=== PATIENT | female | born 1990 | race Caucasian/White ===

== ENCOUNTER 2018-07-03 19:59 | Inpatient (IN) | payer OTHER ==
[~2018-07-03] VITALS: Ht 152.4 cm; Wt 85.6 kg
[2018-07-03 20:26] VITALS: Ht 152.4 cm; Wt 85.6 kg
[2018-07-03] MEDS ORDERED: MAGNESIUM SULFATE 4 GM/100 ML 100 ML IV PRN (21:00)
[2018-07-03] MEDS ORDERED: LACTATED RINGER'S 1,000 ML IV PRN (21:00)
[2018-07-03] MEDS ORDERED: BETAMET NA PHOS/AC(6 MG/ML) 2 ML INJ SYG IM PRN (21:00)
[2018-07-03] MEDS ORDERED: TERBUTALINE 1 MG/ML INJ SC PRN (21:00)
[2018-07-03] MEDS ORDERED: MAGNESIUM SULFATE 20 GM/500 ML 500 ML IV PRN (21:00)
[2018-07-03] MEDS ORDERED: ACETAMINOPHEN 500 MG TAB PO PRN (21:00)
--- NOTE | 2018-07-03 21:51 | TRIAGE ---
OB Triage Datetime Report Generated by CPN: 07/03/2018 21:51 Datetime: 07/03/2018 21:27 Labor Evaluation Monitor Mode: Palpation Resting Tone [place]: Relaxed Datetime: 07/03/2018 20:03 EGA: 31.1 Datetime: 07/03/2018 19:45 Stage of : OB Triage Assessment Type: Triage Time of Arrival: 07/03/2018 19:45 Arrived By: Wheelchair Arrived From: Home Chief Complaint: abd/dfm since 0200 Movement: Decreased Contractions: Unsure Rupture of Membranes: Denies Vaginal Bleeding: None Vaginal Discharge: Denies Recent Sexual Intercouse: Denies Abdominal Trauma: Not Applicable Patient Complaints: Back Pain; Headache Time Provider Notified: 07/03/2018 21:00 Provider Notified: salceda Maternal Assessment Level of Consciousness: Fully Conscious Headache: Denies Blurred Vision: No Respiratory Effort: Unlabored; Regular Rhythm; Equal Expansion Breath Sounds, Left: Clear and Equal Breath Sounds, Right: Clear and Equal Nausea/Vomiting: Denies RUQ Epigastric Pain: Denies Facial Edema: None Fall Risk Assessment History of Falling: (0) No Secondary Diagnosis: (0) No Ambulatory Aid: (0) Bedrest/Nurse Assist IV Therapy: (0) No Gait: (0) Normal/Bedrest/Immobile Mental Status: (0) Oriented to Own Ability Fall Score: 0 Fall Risk Score Definition: No Risk: No action required
[2018-07-04] MEDS ORDERED: PRENATAL VITAMIN PO SCH (09:00)
--- NOTE | 2018-07-05 17:40 | PN ---
Triage Information Date/Time Jul 03, 2018 at 21:00 Reason for visit: Uterine contractions Weeks of Gestation 28 yo at 31 wks and 2 days of gestation with [facility] 09/03/2018 presents with complaint of uterine contractions She reports positive movement, denies vaginal bleeding or leaking fluid Past OB hx SABx 4 , C/S X2 Reports hx of PTL and hx of vaginal BV infection /Para Diabetes: none Hypertention: none Objective Vital Signs Date Temp Pulse Resp B/P (MAP) Pulse Ox O2 O2 Flow FiO2 Time Delivery Rate 07/03/18 98.0 22:30 Heart Rate: 140's Heart Rate Comments heart rate tracing CAT 1 Contractions: None Results/Medications Result Diagram: 07/03/18222307/03/182223 Results 24 hrs Urine Results - 72 Hrs Test 07/03/18 20:09 Urine Color YELLOW (YELLOW) Urine Clarity CLEAR (CLEAR) Urine pH 6.0 (5.0-9.0) Urine Specific [place] 1.015 (1.003-1.030) Urine Ketones NEGATIVE mg/dL (NEGATIVE) Urine Nitrite NEGATIVE mg/dL (NEGATIVE) Urine Bilirubin NEGATIVE mg/dL (NEGATIVE) Urine Urobilinogen 1+ mg/dL (NEGATIVE) H Urine Leukocyte Esterase NEGATIVE Master/ul Urine Microscopic RBC 2 /HPF (0-5) Urine Microscopic WBC 0 /HPF (0-5) Urine Squamous Epithelial Cells FEW /HPF (FEW) Urine Mucus FEW /HPF (NONE SEEN) A Urine Hemoglobin 1+ mg/dL (NEGATIVE) H Urine Glucose NEGATIVE mg/dL (NEGATIVE) Urine Total Protein NEGATIVE mg/dl (NEGATIVE) Imaging Results PROCEDURE: Obstetric ultrasound CLINICAL INDICATION: Pain , labor TECHNIQUE: Multiple transverse and longitudinal grayscale images of the pelvis were obtained transabdominally and transvaginally.. COMPARISON: US PELVIS 07/03/2018 FINDINGS: The cervix is closed with a length of 3.1 cm. There is a single live intrauterine gestation. Cardiac activity is present with 140 beats per minute. There is a vertex presentation. The placenta is posterior. There is no evidence for an abruption or placenta previa. RPTAT: AA IMPRESSION: Cervix length measures 3.1 cm. Posterior placenta with no abruption or previa. .Solomon Hernandez MD, MD Date Time Electronically viewed and signed by .Solomon Hernandez MD, MD on 07/04/2018 12:54 .S/ CC: BLAIRE PHILIPPE MD [phone] PROCEDURE: US OB biophysical profile. CLINICAL INDICATION: labor TECHNIQUE: Multiple sonographic images of the pelvis were obtained. The images were reviewed on a PACS workstation. COMPARISON: No prior studies are available for comparison. FINDINGS: Gestation: Single live intrauterine gestation. Cardiac activity: 144 beats per minute. Presentation: Vertex. Placenta: Location: Right lateral body grade II Appearance: No previa or abruption. Amniotic Fluid: NEHA = 17.1 cm Biophysical profile: - movement = 2/2 - tone = 2/2 - breathing = 2/2 - NEHA = 2/2 Total = 8/8 IMPRESSION: Normal biophysical profile. RPTAT: AA . Physician Lidia Date Time Electronically viewed and signed by Physician Lidia on 07/03/2018 21:51 RB/ CC: LENA HUTCHINS MD [id number] PROCEDURE: US OB. CLINICAL INDICATION: labor TECHNIQUE: Multiple sonographic images of the pelvis and gravid uterus were obtained. The images were reviewed on a PACS workstation. COMPARISON: No prior studies are available for comparison. FINDINGS: Gestation: Single live intrauterine gestation. Cardiac activity: 144 beats per minute. Presentation: Vertex. Placenta: Location: Right lateral body grade 2 Appearance: No previa or abruption. Measurements: BPD = 8.1 cm, 32 weeks and 4 days HC = 29.3 cm, 32 weeks and 2 days AC = 28 cm, 31 weeks and 6 days FL = 6.3 cm, 32 weeks and 4 days Gestational Age: AUA estimated gestational age: 32 weeks 2 days LMP estimated gestational age: 31 weeks 1 days AUA estimated date of delivery: 08/26/2018 The EFW = 1918 g, 73%ile based on LMP age. RPTAT: AA IMPRESSION: Single live intrauterine gestation of 32 weeks 2 days by ultrasound criteria. Mark Gee Physician Date Time Electronically viewed and signed by Mark Gee Physician on 07/03/2018 21:54 RB/ CC: LENA HUTCHINS MD [id number] Disposition: Discharge Assessment/Plan po hydration was given and instructed to increase po hydration Urine culture was sent Prescription for MetroGel was given kick count instructions were given Patient was instructed to F/U with own OBGYN in 1-2 days BLAIRE PHILIPPE MD Jul 05, 2018 17:35
--- NOTE | 2018-07-08 05:31 | PREOPHP ---
DATE OF ADMISSION: 07/03/2018 HISTORY OF PRESENT ILLNESS: This is a 28-year-old lady, 7, para 2 with 4 spontaneous abortio ns. Her EDC is 09/03/2018, at 31 weeks' , admitted to labor and delivery area for observatio n. She was having lower abdominal pains and low back pains, so she was admitted for observation. Loree beasley had care in my [place] office and the care was uneventful. PAST PERSONAL HISTORY: No history of diabetes, TB, asthma. ALLERGIES: NONE. SOCIAL HISTORY: The patient does not smoke. She does not drink. MEDICATIONS: She does not take any drugs except her: 1. Iron. 2. Vitamins. GYNECOLOGIC HISTORY: She had menarche at the age of 8, every 28 days' interval, 3 to 4 days' durati on and moderate in amount. FAMILY HISTORY: Mother has hypertension. OBSTETRIC HISTORY: She is 7, para 2. Her first delivery was in 2009, second in 2013, both b y . She had 4 spontaneous abortions. REVIEW OF SYSTEMS: CARDIOVASCULAR: No chest pains. RESPIRATORY: No cough. GASTROINTESTINAL: No diarrhea, no vomiting. GENITOURINARY: No dysuria. PHYSICAL EXAMINATION: GENERAL: Reveals a conscious, coherent lady and in no acute distress. VITAL SIGNS: Her blood pressure is 120/80, pulse rate 80 per minute, respirations 16 per minute. BREASTS, HEART AND LUNGS: Within normal limits. ABDOMEN: Soft. No organomegaly. Fundic height is 31 cm. heart tones are 140 per minute. PELVIC: Revealed the cervix to be closed. EXTREMITIES: No pedal edema. ADMITTING DIAGNOSIS: A 31 weeks' intrauterine , rule out labor. The patient was planned to be observed in the hospital and to be given IV hydration. She was ordered some betamethasone as well. The plans were explained to the patient and she understood everything t otally. The risks, benefits and alternatives were discussed with her as well. Dictated By: LENA BURR/NTS Conf#: [id number] DID#: [id number]
== END 2018-07-04 14:20 | disposition home or self-care (01) | DRG 833 ==
LOC: OBT 19:59 → L-D 20:01 → OBT 21:00 → L-D 21:00
PROVIDERS: ADMIT Obstetrics & Gynecology; ATTEND Obstetrics & Gynecology
DX: O60.03 Preterm labor without delivery, third trimester (principal); Z3A.31 31 weeks gestation of pregnancy
CPT/HCPCS: 76815; 76817; 76818; 80053; 81001; 85025; 87086; G0463

== ENCOUNTER 2018-07-14 19:12 | Outpatient (CLI) | payer OTHER ==
[~2018-07-14] VITALS: Ht 152.4 cm; Wt 85.7 kg
[2018-07-14 19:38] VITALS: Ht 152.4 cm; Wt 85.7 kg
[2018-07-14] MEDS ORDERED: PREN-93 PO (19:38)
[2018-07-14 19:39] VITALS: BP 98/52; PULSE 72; RESP 18
[2018-07-14] MEDS ORDERED: TERBUTALINE 1 MG/ML INJ SC PRN (20:00)
[2018-07-14] MEDS ORDERED: BETAMET NA PHOS/AC(6 MG/ML) 2 ML INJ SYG IM ONE (20:00)
--- NOTE | 2018-07-14 21:23 | TRIAGE ---
OB Triage Datetime Report Generated by CPN: 07/14/2018 21:22 Datetime: 07/14/2018 19:36 Assessment Type: Triage Maternal Assessment Level of Consciousness: Fully Conscious DTR's/Clonus: DTRs 2+; No Clonus Headache: Denies Blurred Vision: No Respiratory Effort: Unlabored; Regular Rhythm; Equal Expansion Breath Sounds, Left: Clear and Equal Breath Sounds, Right: Clear and Equal Nausea/Vomiting: Denies RUQ Epigastric Pain: Denies Lower Extremities Edema: None Degree: None Upper Extremities Edema: None Degree: None Facial Edema: None Fall Risk Assessment History of Falling: (0) No Secondary Diagnosis: (0) No Ambulatory Aid: (0) Bedrest/Nurse Assist IV Therapy: (0) No Gait: (0) Normal/Bedrest/Immobile Mental Status: (0) Oriented to Own Ability Fall Score: 0 Fall Risk Score Definition: No Risk: No action required Datetime: 07/14/2018 19:35 Time of Arrival: 07/14/2018 19:00 EGA: 32.5 Arrived By: Ambulatory Arrived From: Home Chief Complaint: PT. HERE C/O SHOOTING PAIN DOWN HER RIGHT LEG AND CRAMPING Movement: Present Contractions: Denies/Absent Rupture of Membranes: Denies Vaginal Discharge: Denies Recent Sexual Intercouse: Yes Abdominal Trauma: Not Applicable Patient Complaints: Cramping Time Provider Notified: 07/14/2018 19:20 Provider Notified: SALCEDA Initial Plan: CBC/UA/BPP/EFW/CVL/BLE VENOUS DOPPLER/ Datetime: 07/14/2018 19:28 Monitor Mode: External Monitor Mode: External US Datetime: 07/04/2018 14:03 Stage of : Antepartum Datetime: 07/04/2018 14:00 Labor Evaluation Frequency: 0 Monitor Mode: External Pattern: Normal: <= 5 Contractions in 10 Minutes Resting Tone [place]: Relaxed Heart Rate FHR Baseline Rate: 125 Monitor Mode: External US Variability: Moderate 6-25 bpm Accelerations: 10X10 Decelerations: None Category: Category I Pain Assessment Pain Scale: 0 Pain Presence: None/Denies Pain Type: N/A Pain Goal: 3 Pain Relief Measures: Comfort Measures Datetime: 07/04/2018 12:50 Labor Evaluation Frequency: 0 Monitor Mode: External Pattern: Normal: <= 5 Contractions in 10 Minutes Resting Tone [place]: Relaxed Heart Rate FHR Baseline Rate: 135 Monitor Mode: External US Variability: Moderate 6-25 bpm Accelerations: 10X10 Decelerations: None Category: Category I Pain Assessment Pain Scale: 0 Pain Presence: None/Denies Pain Type: N/A Pain Goal: 3 Pain Relief Measures: Comfort Measures Datetime: 07/04/2018 11:57 Stage of : Antepartum Datetime: 07/04/2018 11:38 Stage of : Antepartum Datetime: 07/04/2018 11:31 Comments: MULTIPLE MOVEMENTS Datetime: 07/04/2018 10:30 Labor Evaluation Frequency: 0 Monitor Mode: External Pattern: Normal: <= 5 Contractions in 10 Minutes Resting Tone [place]: Relaxed Heart Rate FHR Baseline Rate: 135 Monitor Mode: External US Variability: Moderate 6-25 bpm Accelerations: 10X10 Decelerations: None Category: Category I Pain Assessment Pain Scale: 3 Pain Presence: Intermittent Pain Type: Cramping Pain Location: Abdomen Pain Goal: 3 Pain Relief Measures: Comfort Measures Datetime: 07/04/2018 09:23 Labor Evaluation Frequency: X1 Monitor Mode: External Duration (sec)2399: 50 Pattern: Normal: <= 5 Contractions in 10 Minutes Resting Tone [place]: Relaxed Heart Rate FHR Baseline Rate: 135 Monitor Mode: External US Variability: Moderate 6-25 bpm Accelerations: 10X10 Decelerations: None Category: Category I Pain Assessment Pain Scale: 0 Pain Presence: None/Denies Pain Type: N/A Pain Goal: 3 Pain Relief Measures: Comfort Measures Datetime: 07/04/2018 08:34 Labor Evaluation Frequency: 0 Monitor Mode: External Pattern: Normal: <= 5 Contractions in 10 Minutes Resting Tone [place]: Relaxed Heart Rate FHR Baseline Rate: 135 Monitor Mode: External US Variability: Moderate 6-25 bpm Accelerations: 10X10 Decelerations: None Category: Category I Pain Assessment Pain Scale: 0 Pain Presence: None/Denies Pain Type: N/A Pain Goal: 3 Pain Relief Measures: Comfort Measures Datetime: 07/04/2018 08:30 Assessment Type: Ongoing Assessment Maternal Assessment Level of Consciousness: Fully Conscious DTR's/Clonus: DTRs 2+; No Clonus Headache: Denies Blurred Vision: No Respiratory Effort: Unlabored; Regular Rhythm; Equal Expansion Breath Sounds, Left: Clear and Equal Breath Sounds, Right: Clear and Equal Nausea/Vomiting: Denies RUQ Epigastric Pain: Denies Facial Edema: None Fall Risk Assessment History of Falling: (0) No Secondary Diagnosis: (0) No Ambulatory Aid: (0) Bedrest/Nurse Assist IV Therapy: (0) No Gait: (0) Normal/Bedrest/Immobile Mental Status: (0) Oriented to Own Ability Fall Score: 0 Fall Risk Score Definition: No Risk: No action required Datetime: 07/04/2018 07:32 Labor Evaluation Frequency: X1 Monitor Mode: External Duration (sec)2399: 40 Pattern: Normal: <= 5 Contractions in 10 Minutes Resting Tone [place]: Relaxed Heart Rate FHR Baseline Rate: 135 Monitor Mode: External US Variability: Moderate 6-25 bpm Accelerations: 10X10 Decelerations: None Category: Category I Pain Assessment Pain Scale: 0 Pain Presence: None/Denies Pain Type: N/A Pain Goal: 3 Pain Relief Measures: Comfort Measures Datetime: 07/04/2018 06:42 Stage of : Antepartum Maternal Assessment Level of Consciousness: Fully Conscious Labor Evaluation Frequency: None Monitor Mode: External Pattern: Normal: <= 5 Contractions in 10 Minutes Heart Rate FHR Baseline Rate: 135 FHR Baseline Changes: No Baseline Change Variability: Moderate 6-25 bpm Accelerations: 15X15 Category: Category I Pain Assessment Pain Scale: 0 Pain Presence: None/Denies Datetime: 07/04/2018 05:45 Stage of : Antepartum Maternal Assessment Level of Consciousness: Fully Conscious Labor Evaluation Frequency: None Monitor Mode: External Pattern: Normal: <= 5 Contractions in 10 Minutes Heart Rate FHR Baseline Rate: 125 FHR Baseline Changes: No Baseline Change Variability: Moderate 6-25 bpm Accelerations: 15X15 Category: Category I Pain Assessment Pain Scale: 0 Pain Presence: None/Denies Datetime: 07/04/2018 04:44 Stage of : Antepartum Maternal Assessment Level of Consciousness: Fully Conscious Temperature Route: Oral Labor Evaluation Frequency: None Monitor Mode: External Pattern: Normal: <= 5 Contractions in 10 Minutes Heart Rate FHR Baseline Rate: 130 FHR Baseline Changes: No Baseline Change Variability: Moderate 6-25 bpm Accelerations: 15X15 Category: Category I Pain Assessment Pain Scale: 0 Pain Presence: None/Denies Pain Assessment Comments: Pt states she has no pain, wants to go back to sleep, Pt was cold, blamk ets given, up to BR. Datetime: 07/04/2018 03:15 Stage of : Antepartum Maternal Assessment Level of Consciousness: Fully Conscious Labor Evaluation Frequency: None Monitor Mode: External Pattern: Normal: <= 5 Contractions in 10 Minutes Heart Rate FHR Baseline Rate: 130 FHR Baseline Changes: No Baseline Change Variability: Moderate 6-25 bpm Accelerations: 15X15 Category: Category I Pain Assessment Pain Scale: 0 Pain Presence: None/Denies Datetime: 07/04/2018 02:15 Stage of : Antepartum Maternal Assessment Level of Consciousness: Fully Conscious Labor Evaluation Frequency: None Monitor Mode: External Pattern: Normal: <= 5 Contractions in 10 Minutes Heart Rate FHR Baseline Rate: 130 FHR Baseline Changes: No Baseline Change Variability: Moderate 6-25 bpm Accelerations: 15X15 Category: Category I Pain Assessment Pain Scale: 0 Pain Presence: None/Denies Pain Assessment Comments: Sleeping did not awaken when rounding Datetime: 07/04/2018 01:11 Stage of : Antepartum Maternal Assessment Level of Consciousness: Fully Conscious Labor Evaluation Frequency: x2 Monitor Mode: External Pattern: Normal: <= 5 Contractions in 10 Minutes Heart Rate FHR Baseline Rate: 130 FHR Baseline Changes: No Baseline Change Variability: Moderate 6-25 bpm Accelerations: 15X15 Category: Category I Pain Assessment Pain Scale: 2 Pain Presence: Constant Pain Type: Cramping; Dull; Sharp; Stabbing; Pressure Datetime: 07/04/2018 00:13 Stage of : Antepartum Assessment Type: Admission Assessment Vaginal Bleeding: None Maternal Assessment Level of Consciousness: Fully Conscious DTR's/Clonus: DTRs 2+; No Clonus Headache: Denies Blurred Vision: No Respiratory Effort: Unlabored; Regular Rhythm; Equal Expansion Breath Sounds, Left: Clear and Equal Breath Sounds, Right: Clear and Equal Nausea/Vomiting: Denies RUQ Epigastric Pain: Denies Facial Edema: None Fall Risk Assessment History of Falling: (0) No Secondary Diagnosis: (0) No Ambulatory Aid: (0) Bedrest/Nurse Assist IV Therapy: (0) No Gait: (0) Normal/Bedrest/Immobile Mental Status: (0) Oriented to Own Ability Fall Score: 0 Fall Risk Score Definition: No Risk: No action required Labor Evaluation Frequency: x2 Monitor Mode: External Pattern: Normal: <= 5 Contractions in 10 Minutes Heart Rate FHR Baseline Rate: 130 FHR Baseline Changes: No Baseline Change Variability: Moderate 6-25 bpm Accelerations: 15X15 Category: Category I Pain Assessment Pain Scale: 2 Pain Presence: Constant Pain Type: Cramping; Dull; Sharp; Stabbing; Pressure (Annotations: Pt voices all types of pain on abdomen, and pelvic pain. No UC's noted with EFM or by palpation. Fetus is very active and pt. complains with every movement of pain.) Datetime: 07/03/2018 23:30 Stage of : Antepartum Maternal Assessment Level of Consciousness: Fully Conscious Labor Evaluation Frequency: x2 Monitor Mode: External Duration (sec)2399: 20-40 Quality: Mild Pattern: Normal: <= 5 Contractions in 10 Minutes Resting Tone [place]: Relaxed Heart Rate FHR Baseline Rate: 130 Monitor Mode: External US FHR Baseline Changes: No Baseline Change Variability: Moderate 6-25 bpm Accelerations: 15X15 Decelerations: None Category: Category I Pain Assessment Pain Scale: 2 Pain Presence: Intermittent Pain Type: Cramping; Dull; Stabbing; Pressure Pain Location: Abdomen; Back; Perineum; Right Groin; Left Groin; Right Hip; Left Hip Pain Relief Measures: Comfort Measures Datetime: 07/03/2018 22:30 Stage of : Antepartum Assessment Type: Admission Assessment Maternal Assessment Level of Consciousness: Fully Conscious DTR's/Clonus: DTRs 2+ Headache: Denies Blurred Vision: No Respiratory Effort: Unlabored; Regular Rhythm; Equal Expansion Breath Sounds, Left: Clear and Equal Breath Sounds, Right: Clear and Equal Nausea/Vomiting: Denies RUQ Epigastric Pain: Denies Lower Extremities Edema: None Upper Extremities Edema: None Facial Edema: None Fall Risk Assessment History of Falling: (0) No Secondary Diagnosis: (0) No Ambulatory Aid: (0) Bedrest/Nurse Assist IV Therapy: (0) No Gait: (0) Normal/Bedrest/Immobile Mental Status: (0) Oriented to Own Ability Fall Score: 0 Fall Risk Score Definition: No Risk: No action required Labor Evaluation Frequency: x2 Monitor Mode: External Duration (sec)2399: 20-40 Quality: Mild Pattern: Normal: <= 5 Contractions in 10 Minutes Resting Tone [place]: Relaxed Heart Rate FHR Baseline Rate: 130 Monitor Mode: External US FHR Baseline Changes: No Baseline Change Variability: Moderate 6-25 bpm Accelerations: 15X15 Decelerations: None Category: Category I Pain Assessment Pain Scale: 2 Pain Presence: Intermittent Pain Type: Cramping; Dull; Stabbing; Pressure Pain Location: Abdomen; Back; Perineum; Right Groin; Left Groin; Right Hip; Left Hip Pain Relief Measures: Comfort Measures Datetime: 07/03/2018 22:00 Labor Evaluation Frequency: 0 Monitor Mode: External Duration (sec)2399: 0 Pattern: Normal: <= 5 Contractions in 10 Minutes Heart Rate FHR Baseline Rate: 135 Monitor Mode: External US FHR Baseline Changes: No Baseline Change Variability: Moderate 6-25 bpm Accelerations: 15X15 Datetime: 07/03/2018 21:39 Comments: patient reports positive movement Datetime: 07/03/2018 21:00 Labor Evaluation Frequency: 0 Monitor Mode: External Duration (sec)2399: 0 Pattern: Normal: <= 5 Contractions in 10 Minutes Heart Rate FHR Baseline Rate: 135 Monitor Mode: External US FHR Baseline Changes: No Baseline Change Variability: Moderate 6-25 bpm Accelerations: 15X15 Datetime: 07/03/2018 20:45 Stage of : OB Triage Datetime: 07/03/2018 20:03 EGA: 31.1 Arrived By: Wheelchair Datetime: 07/03/2018 19:45 Fall Score: 0 Fall Risk Score Definition: No Risk: No action required
--- NOTE | 2018-08-14 04:14 | HP ---
DATE OF ADMISSION: 07/14/2018 HISTORY OF PRESENT ILLNESS: This is a 28-year-old lady, 7, para 2 with 4 spontaneous abortio n. Her EDC is 09/03/2018 at 32 and 4/7 weeks , admitted for observation because of lower abd ominal pains and leg pains. This started about few hours prior to admission. She had care in my [place] office and the care was uneventful. PAST PERSONAL HISTORY: No history of TB, asthma. ALLERGIES: NO ALLERGIES. SOCIAL HISTORY: The patient does not smoke. She does not drink. MEDICATIONS: She does not take any drugs except her: 1. Iron. 2. Vitamins. GYNECOLOGIC HISTORY: She had menarche at the age of 8, every 28 days interval, 3 to 4 days duration and moderate in amount. FAMILY HISTORY: Noncontributory except her mother has hypertension. OBSTETRIC HISTORY: She is 5, para 2. She had her first delivery was in 2009, second in 2013 , both by . She had 4 spontaneous , 2 in 2016, 1 in 2018 and last one, the patient does not remember. REVIEW OF SYSTEMS: CARDIOVASCULAR: No chest pains. RESPIRATORY: No cough. GASTROINTESTINAL: No diarrhea, no vomiting. GENITOURINARY: No dysuria. PHYSICAL EXAMINATION: GENERAL: Reveals a conscious, coherent lady and in no acute distress. VITAL SIGNS: Her blood pressure 120/80, pulse rate 80 per minute, respirations 16 per minute. BREASTS, HEART AND LUNGS: Within normal limits. ABDOMEN: Soft. Fundic height is 32 cm. heart tones are normal. PELVIC: Revealed the cervix to be closed. EXTREMITIES: No calf tenderness. ASSESSMENT: This 32 and 4/7 weeks intrauterine , rule out labor and rule out deep v enous thrombosis. The patient was observed in the hospital. OB ultrasound showed NEHA was normal. was done and t hey were negative. The patient felt better during the observation and she was discharged home in o and stable condition on general diet and activity was restricted. She was counseled. She was inst ructed. She was told to come back to the hospital if there is any problem or concern. DIAGNOSIS: A 32 and 4/7 weeks intrauterine , false labor. Dictated By: LENA BURR/ANDREA Conf#: [id number] [facility]#: [id number]
== END 2018-07-14 21:35 | disposition home or self-care (01) ==
LOC: OBT 19:12 → L-D 19:13 → OBT 21:35
PROVIDERS: ATTEND Obstetrics & Gynecology
DX: O47.03 False labor before 37 completed weeks of gestation, third trimester (principal); Z3A.32 32 weeks gestation of pregnancy
CPT/HCPCS: 76815; 76817; 76818; 81001; 85025; 93970; J0702; Z7500; G0463

== ENCOUNTER 2018-08-02 18:25 | Outpatient (CLI) | payer OTHER ==
[~2018-08-02] VITALS: Ht 152.4 cm; Wt 86.9 kg
[~2018-08-02 18:25] MED LIST: PREN-93 PO
[2018-08-02 19:03] VITALS: Ht 152.4 cm; Wt 86.9 kg
[2018-08-02] MEDS ORDERED: LACTATED RINGER'S 500 ML IV ONE (19:30)
[2018-08-02] MEDS ORDERED: ACETAMINOPHEN 500 MG TAB PO STA (21:26)
--- NOTE | 2018-08-02 22:18 | PN ---
Triage Information Date/Time Reason for visit: Uterine contractions Weeks of Gestation 35+ weeks /Para Diabetes: none Hypertention: none Objective Heart Rate: 120's Heart Rate Comments Reactive Contractions: >10 Minutes Apart Exam Cervix closed Disposition: Discharge Assessment/Plan After rest, patient states her contractions spaced out. No cervical change Follow up with CAROLINE Sprague MD Aug 02, 2018 22:18
--- NOTE | 2018-08-03 03:47 | TRIAGE ---
OB Triage Datetime Report Generated by CPN: 08/03/2018 03:47 Datetime: 08/02/2018 22:20 Stage of : OB Triage Assessment Type: Triage Datetime: 08/02/2018 22:04 Stage of : OB Triage Labor Evaluation Frequency: Occasional Monitor Mode: External Duration (sec)2399: 40-140 Quality: Mild Pattern: Normal: <= 5 Contractions in 10 Minutes Resting Tone [place]: Relaxed Heart Rate FHR Baseline Rate: 130 Monitor Mode: External US FHR Baseline Changes: No Baseline Change Variability: Moderate 6-25 bpm Accelerations: 15X15 Decelerations: None Category: Category I Datetime: 08/02/2018 21:59 Stage of : OB Triage Datetime: 08/02/2018 21:47 Vaginal Exam Dilatation (cms): 0.0 Station: -2 Exam By: Dr.Delshad Datetime: 08/02/2018 21:45 Stage of : OB Triage Datetime: 08/02/2018 21:35 Stage of : OB Triage Pain Assessment Pain Scale: 8 Pain Presence: Constant Pain Type: Ache Pain Location: Head Pain Relief Measures: Pain Medication Given Datetime: 08/02/2018 21:00 Stage of : OB Triage Labor Evaluation Frequency: Occasional Monitor Mode: External Duration (sec)2399: 40-60 Quality: Mild Pattern: Normal: <= 5 Contractions in 10 Minutes Resting Tone [place]: Relaxed Heart Rate FHR Baseline Rate: 130 Monitor Mode: External US FHR Baseline Changes: No Baseline Change Variability: Moderate 6-25 bpm Accelerations: 15X15 Decelerations: None Datetime: 08/02/2018 20:00 Stage of : OB Triage Labor Evaluation Frequency: Irregular Monitor Mode: External Duration (sec)2399: 40-80 Quality: Mild Pattern: Normal: <= 5 Contractions in 10 Minutes Resting Tone [place]: Relaxed Heart Rate FHR Baseline Rate: 130 Monitor Mode: External US Variability: Moderate 6-25 bpm Accelerations: 15X15 Decelerations: None Category: Category I Datetime: 08/02/2018 19:47 Assessment Type: Triage Datetime: 08/02/2018 19:35 Stage of : OB Triage Assessment Type: Triage Maternal Assessment Level of Consciousness: Fully Conscious DTR's/Clonus: DTRs 2+; No Clonus Headache: Denies Blurred Vision: No Respiratory Effort: Unlabored; Regular Rhythm; Equal Expansion Breath Sounds, Left: Clear and Equal Breath Sounds, Right: Clear and Equal Nausea/Vomiting: Denies RUQ Epigastric Pain: Denies Lower Extremities Edema: None Degree: None Upper Extremities Edema: None Degree: None Facial Edema: None Temperature Route: Oral Fall Risk Assessment History of Falling: (0) No Secondary Diagnosis: (0) No Ambulatory Aid: (0) Bedrest/Nurse Assist IV Therapy: (0) No Gait: (0) Normal/Bedrest/Immobile Mental Status: (0) Oriented to Own Ability Fall Score: 0 Fall Risk Score Definition: No Risk: No action required Datetime: 08/02/2018 19:22 Stage of : OB Triage Datetime: 08/02/2018 18:59 Maternal Assessment Level of Consciousness: Fully Conscious DTR's/Clonus: DTRs Absent Headache: Denies Blurred Vision: No Respiratory Effort: Unlabored Breath Sounds, Left: Clear and Equal Breath Sounds, Right: Clear and Equal Nausea/Vomiting: Denies RUQ Epigastric Pain: Denies Facial Edema: None Labor Evaluation Frequency: X1 Monitor Mode: External Duration (sec)2399: 40 Quality: Mild Pattern: Normal: <= 5 Contractions in 10 Minutes Resting Tone [place]: Relaxed Heart Rate FHR Baseline Rate: 135 Monitor Mode: External US Variability: Moderate 6-25 bpm Accelerations: 10X10 Decelerations: None Category: Category I Pain Assessment Pain Scale: 4 Pain Presence: Intermittent Pain Type: Contraction Pain Location: Back Pain Goal: 3 Membrane Status: Intact Datetime: 08/02/2018 18:45 Assessment Type: Triage Maternal Assessment Level of Consciousness: Fully Conscious DTR's/Clonus: DTRs 2+; No Clonus Headache: Denies Blurred Vision: No Respiratory Effort: Unlabored; Regular Rhythm; Equal Expansion Breath Sounds, Left: Clear and Equal Breath Sounds, Right: Clear and Equal Nausea/Vomiting: Denies RUQ Epigastric Pain: Denies Lower Extremities Edema: None Degree: None Upper Extremities Edema: None Degree: None Facial Edema: None Fall Risk Assessment History of Falling: (0) No Secondary Diagnosis: (0) No Ambulatory Aid: (0) Bedrest/Nurse Assist IV Therapy: (0) No Gait: (0) Normal/Bedrest/Immobile Mental Status: (0) Oriented to Own Ability Fall Score: 0 Fall Risk Score Definition: No Risk: No action required Datetime: 08/02/2018 18:22 Time of Arrival: 08/02/2018 18:22 EGA: 35.3 Arrived By: Ambulatory Arrived From: Home Chief Complaint: PT CAME IN C/O UC'S EVERY 15 MIN SINCE THIS AM. PT STATES THAT DR HUTCHINS TOLD PT THAT PT MAY GET DELIVER EARLIER BECAUSE HER BABY TORSO IS NOT GROWING Movement: Present Contractions: Regular Time Contractions Began: 08/02/2018 08:00 Contractions: 15 MIN Rupture of Membranes: Denies Vaginal Discharge: Denies Recent Sexual Intercouse: Denies Abdominal Trauma: Not Applicable Additional Patient Complaints: NONE Time Provider Notified: 08/02/2018 19:22 Provider Notified: Initial Plan: IV hydration, U/S for EFW/BPP/Cervical length Datetime: 07/14/2018 20:30 Stage of : OB Triage Maternal Assessment Level of Consciousness: Fully Conscious Labor Evaluation Frequency: 0 Monitor Mode: External Resting Tone [place]: Relaxed Heart Rate FHR Baseline Rate: 135 Monitor Mode: External US Variability: Moderate 6-25 bpm Accelerations: 15X15 Decelerations: None Category: Category I Pain Assessment Pain Scale: 0 Pain Presence: None/Denies Pain Goal: 3 Membrane Status: Intact Vaginal Bleeding: None Datetime: 07/14/2018 19:36 Fall Score: 0 Fall Risk Score Definition: No Risk: No action required Datetime: 07/14/2018 19:35 EGA: 32.5 Datetime: 07/04/2018 08:30 Fall Score: 0 Fall Risk Score Definition: No Risk: No action required Datetime: 07/04/2018 00:13 Fall Score: 0 Fall Risk Score Definition: No Risk: No action required Datetime: 07/03/2018 22:30 Fall Score: 0 Fall Risk Score Definition: No Risk: No action required Datetime: 07/03/2018 20:03 EGA: 31.1 Datetime: 07/03/2018 19:45 Fall Score: 0 Fall Risk Score Definition: No Risk: No action required
== END 2018-08-02 22:36 | disposition home or self-care (01) ==
LOC: OBT 18:25 → L-D 18:25 → OBT 22:36
PROVIDERS: ATTEND Obstetrics & Gynecology
DX: O62.9 Abnormality of forces of labor, unspecified (principal); Z3A.35 35 weeks gestation of pregnancy
CPT/HCPCS: 36415; 76815; 76817; 76818; 96360; 96361; J7120; Z7500; Z7610; G0463